=== PATIENT | male | born 1945 | race Caucasian/White ===

== ENCOUNTER 2023-05-12 07:35 | Outpatient (OUT) | payer MEDICARE, SELFPAY ==
[2023-05-12 08:20] LABS: Basophils Absolute Auto 0.1 10^3/uL (0.0-0.1); Basophils Percent Auto 0.7 % (0.2-2.0); Eosinophils Absolute Auto 0.2 10^3/uL (0.0-0.7); Eosinophils Percent Auto 2.2 % (0.9-7.0); Hematocrit 37.9 % (42.0-54.0); Hemoglobin 12.4 g/dL (14.0-18.0); Immature Granulocytes Abs Auto 0.02 10^3/uL (0.00-0.03); Immature Granulocytes Pct Auto 0.2 % (0.0-0.5); Lymphocytes Absolute Auto 1.9 10^3/uL (1.2-3.8); Lymphocytes Percent Auto 24.1 % (20.5-60.0); Mean Corpuscular HGB Conc 32.7 g/dL (29.9-35.2); Mean Corpuscular Hemoglobin 30.4 pg (25.9-34.0); Mean Corpuscular Volume 92.9 fL (80.0-94.0); Mean Platelet Volume 10.2 fL (9.5-13.5); Monocytes Absolute Auto 0.7 10^3/uL (0.3-0.8); Monocytes Percent Auto 9.2 % (1.7-12.0); Neutrophils Absolute Auto 5.1 10^3/uL (1.4-6.5); Neutrophils Percent Auto 63.6 % (43.0-75.0); Platelet Count 168 10^3/uL (150-450); Red Blood Count 4.08 10^6/uL (4.70-6.10); Red Cell Distribution Width 12.7 % (11.0-15.0)
[2023-05-12 08:22] LABS: Estimated Average Glucose 160 mg/dL; Glycohemoglobin A1C 7.2 % (4.5-6.2)
[2023-05-12 08:24] LABS: Microalbumin Urine Random <1.3 mg/dL (<=30.0)
[2023-05-12 09:26] LABS: Alanine Aminotransferase 16 U/L (16-63); Albumin Level 3.3 g/dL (3.4-5.0); Alkaline Phosphatase 91 U/L (46-116); Anion Gap 13.4; Aspartate Amino Transferase 11 U/L (15-37); BUN Creatinine Ratio 23.6; Bilirubin Total 0.3 mg/dL (0.2-1.0); Calcium 8.8 mg/dL (8.5-10.1); Carbon Dioxide 28.4 mmol/L (21.0-32.0); Chloride 98 mmol/L (98-107); Chol HDL Ratio 2.3; Cholesterol 115 mg/dL (<=200); Estimated GFR (African America >60 (>=60); Estimated GFR (Non-African Ame 55 (>=60); Globulin 3.4 g/dL; Glucose 68 mg/dL (74-106); HDL Cholesterol 49 mg/dL (40-60); LDL Cholesterol Calculated 42.6 mg/dL; Potassium 4.8 mmol/L (3.5-5.1); Sodium 135 mmol/L (136-145); Total Protein 6.7 g/dL (6.4-8.2); Triglycerides 117 mg/dL (<=150); VLDL CHOLESTEROL 23.4 mg/dL
== END 2023-05-12 07:36 | disposition home or self-care (01) ==
LOC: LAB 07:39
PROVIDERS: PCP Family Medicine; Visit Provider Family Medicine
DX: E11.65 Type 2 diabetes mellitus with hyperglycemia (principal); E78.5 Hyperlipidemia, unspecified
CPT/HCPCS: 36415; 80053; 80061; 82043; 83036; 85025

== ENCOUNTER 2024-01-07 09:31 | Emergency (ER) | payer MEDICARE, SELFPAY ==
[2024-01-07] VITALS (33 sets, daily range): BP systolic 121–161; BP diastolic 60–74; PULSE 45–65; RESP 6–27; TEMP 36.6; O2SAT 78–100; BMI 24.2
--- NOTE | 2024-01-07 10:02 | CT_ITS ---
The [address] [address] Patient Name: ISABELLE ARANDA MRN: [id number] date: 1945 Sex: M Assigned Patient Location: ER Current Patient Location: ER Accession/Order Number: [id number] Exam Date: 01/07/2024 10:14 Report Date: 01/07/2024 10:23 At the request of: HARIS ALVAREZ Procedure: CT head/brain wo con CT head/brain wo con: 01/07/2024 10:14 AM EST CLINICAL HISTORY: 78 years old Male with dizzy. TECHNIQUE: CT head/brain wo con was performed without intravenous contrast administration. Axial CT images are obtained as well as sagittal and coronal reformations. Dose reduction techniques were achieved by using automated exposure control and/or adjustment of mA and/or kV according to patient size and/or use of iterative reconstruction technique. COMPARISON: None FINDINGS: The ventricles, gyri, sulcal patterns, and basal cisterns have a normal size and configuration for the patient's age. No intracranial hemorrhage or extra-axial fluid collection is identified. There is no evidence of focal mass or midline shift. Ill-defined hypodense lesions of the periventricular white matter suggest microvascular ischemic disease. The basal ganglia and thalami appear normal. The midbrain and cerebellum appear normal. The paranasal sinuses are normally aerated. Mastoid air cells are normally aerated. No appreciable scalp soft tissue swelling or depressed skull fractures are seen. CT/CT head/brain wo con IMPRESSION: No intracranial hemorrhage, mass effect or midline shift. Electronically authenticated by: PREETHI MAO Date: 01/07/2024 10:23
--- NOTE | 2024-01-07 10:03 | ECG_ITS ---
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
--- NOTE | 2024-01-07 10:03 | XR_ITS ---
The [place] [id number] Patient Name: ISABELLE ARANDA MRN: [id number] date: 1945 Sex: M Assigned Patient Location: ER Current Patient Location: ER Accession/Order Number: [id number] Exam Date: 01/07/2024 10:14 Report Date: 01/07/2024 10:37 At the request of: HARIS ALVAREZ Procedure: XR chest 2V EXAM: XR chest 2V HISTORY: dizzy COMPARISON: Chest study dated 07/18/2019 TECHNIQUE: PA and lateral views of the chest were obtained. FINDINGS: Heart and mediastinal contours are unremarkable in appearance. No acute infiltrate or consolidations are seen. No obvious pneumothorax. Mild degenerative changes in the dorsal spine with slight convexity to the right. Old healed rib fractures are noted on the left. XR/XR chest 2V IMPRESSION: No acute process seen in the chest. Electronically authenticated by: ERNA RENAE Date: 01/07/2024 10:37
[2024-01-07 10:13] LABS: Basophils Percent Auto 0.5 % (0.2-2.0); Eosinophils Absolute Auto 0.1 10^3/uL (0.0-0.7); Eosinophils Percent Auto 1.5 % (0.9-7.0); Hemoglobin 12.1 g/dL (14.0-18.0); Immature Granulocytes Abs Auto 0.03 10^3/uL (0.00-0.03); Immature Granulocytes Pct Auto 0.4 % (0.0-0.5); Lymphocytes Absolute Auto 1.4 10^3/uL (1.2-3.8); Lymphocytes Percent Auto 17.6 % (20.5-60.0); Mean Corpuscular HGB Conc 31.8 g/dL (29.9-35.2); Mean Corpuscular Hemoglobin 30.5 pg (25.9-34.0); Mean Corpuscular Volume 95.7 fL (80.0-94.0); Monocytes Absolute Auto 0.7 10^3/uL (0.3-0.8); Monocytes Percent Auto 8.8 % (1.7-12.0); Neutrophils Absolute Auto 5.7 10^3/uL (1.4-6.5); Neutrophils Percent Auto 71.2 % (43.0-75.0); Platelet Count 172 10^3/uL (150-450); Red Blood Count 3.97 10^6/uL (4.70-6.10); White Blood Count 8.1 10^3/uL (4.0-11.0)
[2024-01-07] MEDS: 0.9 % SODIUM CHLORIDE 500 ML IV ×2 (10:28→11:47)
[2024-01-07 10:30] LABS: Alanine Aminotransferase 22 U/L (16-63); Albumin Level 3.2 g/dL (3.4-5.0); Alkaline Phosphatase 98 U/L (46-116); Anion Gap 13.2; Aspartate Amino Transferase 14 U/L (15-37); BUN Creatinine Ratio 22.8; Bilirubin Total 0.2 mg/dL (0.2-1.0); Calcium 8.3 mg/dL (8.5-10.1); Carbon Dioxide 27.8 mmol/L (21.0-32.0); Chloride 101 mmol/L (98-107); Estimated GFR (African America 57 (>=60); Estimated GFR (Non-African Ame 47 (>=60); Globulin 3.2 g/dL; Glucose 89 mg/dL (74-106); Sodium 137 mmol/L (136-145); Total Protein 6.4 g/dL (6.4-8.2)
[2024-01-07 10:31] LABS: Troponin I High Sensitivity 17.2 pg/mL (4.0-76.1)
[2024-01-07] MEDS: CARBAMIDE PEROXIDE 6.5% EAR DROPS 300 DROP/15 ML BOTTLE 10 DROP OT (10:50)
--- NOTE | 2024-01-07 10:51 | ED_ITS ---
HPI - General Adult General Chief complaint: Dizziness Stated complaint: LIGHT HEADED Time Seen by Provider: 01/07/24 09:59 Source: patient Mode of arrival: walk-in Limitations: no limitations History of Present Illness HPI narrative: Patient is a 78-year-old male who is translating to the ER with chief complaint of lightheaded, dizzy with no vertigo. Patient has some mild ataxia last night as well. Patient has no headache, patient states he has a history of cerumen impaction in the past. Patient states he does not have much hearing in his right ear at all, he does hear through his left ear. Patient typically using a hearing aid in his left ear, he does not have his hearing aid with him. Patient states with his hearing aid, he has a tendency to push wax in and that because impacted, he has had his years clean in the past, cerumen impaction has caused dizziness for him in the past. He has no vertigo. 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 Patient did not go to work last night secondary to lightheaded, dizziness, mild nausea. Patient's friend brought him to the ER. Patient has no vomiting, diarrhea, rash, or any other acute complaints. Patient is hard of hearing, that he hears when he speak louder to his left ear. All systems are negative except as noted/marked. All systems reviewed and otherwise negative. Nurses note and vital signs reviewed and patient is not hypoxic. General: The patient appears well and in no apparent distress. Patient is resting comfortably on cart. Patient is not toxic, lethargic, or listless. Hard of hearing, speaking loudly to left ear he can hear you and communication is normal and effective. Skin: Warm, dry, no pallor noted. There is no rash noted. No petechiae, purpura. Head: Normocephalic, atraumatic Eye: Normal conjunctiva, no drainage, EOMI. PERRL Ears, Nose, Mouth, and Throat: oral mucosa is moist. Patient's right TM has moderate cerumen impaction, I cannot visualize the right TM. Left TM is visualized, there is no wax. No erythema, perforation or bulging. Nares patent. Mouth without vesicles. Cardiovascular: Regular Rate and Rhythm, no murmur, gallop, rub Respiratory: Patient is in no distress, no accessory muscle use, lungs are clear to auscultation, no wheezing, rales or rhonchi Back: non-tender, no CVA tenderness bilaterally to percussion. No CT LS midline pain GI: no tenderness to palpation, no masses appreciated. No rebound, guarding, or rigidity noted. No distention Musculoskeletal: Patient has full range of motion of all of the extremities, no motor, sensory, or focal neurological deficits Neurological: A&O x4, normal speech Psychiatric: Cooperative Related Data Home Medications Medication Instructions Recorded Confirmed aspirin 81 mg capsule 81 mg PO DAILY 01/07/24 01/07/24 glyburide 5 mg tablet 5 mg PO DAILY 01/07/24 01/07/24 isosorbide mononitrate 30 mg 30 mg PO DAILY 01/07/24 01/07/24 tablet,extended release 24 hr metformin 1,000 mg tablet 1,000 mg PO BID 01/07/24 01/07/24 metoprolol tartrate 25 mg tablet 25 mg PO Q12H 01/07/24 01/07/24 nitroglycerin 0.4 mg sublingual 0.4 mg sublingual Q5M 01/07/24 01/07/24 tablet omega 2-uqw-qjg-fish oil 1,000 mg 1 cap PO DAILY 01/07/24 01/07/24 (120 mg-180 mg) capsule (Fish Oil) simvastatin 80 mg tablet 80 mg PO DAILY 01/07/24 01/07/24 Allergies Allergy/AdvReac Type Severity Reaction Status Date / Time Sulfa (Sulfonamide AdvReac Intermediate Verified 01/07/24 09:55 Antibiotics) [facility] Social History Smoking status: Current every day smoker Exam Constitutional Vital Signs, click to edit/add: Last Vital Signs Temp 97.8 F 01/07/24 09:37 Pulse 53 L 01/07/24 12:50 Resp 19 01/07/24 12:50 BP 133/60 01/07/24 12:45 Pulse Ox 99 01/07/24 12:50 O2 Del Method Room Air 01/07/24 09:37 Course Vital Signs Vital signs: Vital Signs Temperature 97.8 F 01/07/24 09:37 Pulse Rate 49 L 01/07/24 09:37 Respiratory Rate 18 01/07/24 09:37 Blood Pressure 145/73 H 01/07/24 09:37 Pulse Oximetry 100 01/07/24 09:37 Oxygen Delivery Method Room Air 01/07/24 09:37 Temperature 97.8 F 01/07/24 09:37 Pulse Rate 53 L 01/07/24 12:50 Respiratory Rate 19 01/07/24 12:50 Blood Pressure 133/60 01/07/24 12:45 Pulse Oximetry 99 01/07/24 12:50 Oxygen Delivery Method Room Air 01/07/24 09:37 Medical Decision Making MDM Narrative Medical decision making narrative: 1125 patient's creatinine is slightly elevated 1.45 compared to last creatinine of 1.2. Patient's BUN is consistent in the 30s. Chest x-ray, lab work, CT of the brain shows no acute findings. Patient is currently receiving 500 cc bolus of fluid, patient is going to get a second 500 cc bolus of fluid. Patient currently has Debrox drops in her ears. 1340 patient was irrigated several times to the right ear. Some wax was removed, the moderate-sized cerumen impaction has dislodged somewhat. It is deeper into the ear canal, I will not perform any type of curetting secondary to possible trauma that could be cause. Patient was shown how to irrigate his ears in the shower. Patient will do this 3-4 times a week. Patient was ambulated with [facility] and Vani ALONZO. Patient was a little unsteady, but felt better with ambulation, does not appear to be a fall risk, and did not require cane or walker. Patient will be discharged, patient was given a work note. Lab Data Labs: Lab Results 01/07/24 Range/Units 09:47 WBC 8.1 (4.0-11.0) 10^3/uL RBC 3.97 L (4.70-6.10) 10^6/uL Hgb 12.1 L (14.0-18.0) g/dL Hct 38.0 L (42.0-54.0) % MCV 95.7 H (80.0-94.0) fL MCH 30.5 (25.9-34.0) pg MCHC 31.8 (29.9-35.2) g/dL RDW 13.0 (11.0-15.0) % Plt Count 172 (150-450) 10^3/uL MPV 11.0 (9.5-13.5) fL Neut % (Auto) 71.2 (43.0-75.0) % Lymph % (Auto) 17.6 L (20.5-60.0) % [place] % (Auto) 8.8 (1.7-12.0) % Eos % (Auto) 1.5 (0.9-7.0) % Baso % (Auto) 0.5 (0.2-2.0) % Neut # (Auto) 5.7 (1.4-6.5) 10^3/uL Lymph # (Auto) 1.4 (1.2-3.8) 10^3/uL [place] # (Auto) 0.7 (0.3-0.8) 10^3/uL Eos # (Auto) 0.1 (0.0-0.7) 10^3/uL Baso # (Auto) 0.0 (0.0-0.1) 10^3/uL Abs Immat Gran (auto) 0.03 (0.00-0.03) 10^3/uL Imm/Tot Granulo (auto) 0.4 (0.0-0.5) % Sodium 137 (136-145) mmol/L Potassium 5.0 (3.5-5.1) mmol/L Chloride 101 (98-107) mmol/L Carbon Dioxide 27.8 (21.0-32.0) mmol/L Anion Gap 13.2 BUN 33.0 H (7.0-18.0) mg/dL Creatinine 1.45 H (0.70-1.30) mg/dL Est GFR ( Amer) 57 L (>=60) Est GFR (Non-Af Amer) 47 L (>=60) BUN/Creatinine Ratio 22.8 Glucose 89 (74-106) mg/dL Calcium 8.3 L (8.5-10.1) mg/dL Total Bilirubin 0.2 (0.2-1.0) mg/dL AST 14 L (15-37) U/L ALT 22 (16-63) U/L Alkaline Phosphatase 98 (46-116) U/L Troponin I High Sens 17.2 (4.0-76.1) pg/mL Total Protein 6.4 (6.4-8.2) g/dL Albumin 3.2 L (3.4-5.0) g/dL Globulin 3.2 g/dL Albumin/Globulin Ratio 1.0 ECG Data Attestation: I personally reviewed and interpreted this ECG as follows: (EKG interpretation. Normal sinus rhythm at 50 beats a minute. Left axis deviation. Artifact noted. EKG shows signs of left bundle branch block, QTc of 445. Compared to old EKG on June 23, 2010, patient has similar changes to today's EKG.) Discharge Plan Discharge Chief Complaint: Dizziness Clinical Impression: Dizziness, Lightheadedness, Impacted cerumen of right ear Patient Disposition: Home, Self-Care Time of Disposition Decision: 13:42 Condition: Fair Prescriptions / Home Meds: No Action metformin 1,000 mg tablet 1,000 mg PO BID glyburide 5 mg tablet 5 mg PO DAILY isosorbide mononitrate 30 mg tablet extended release 24 hr 30 mg PO DAILY metoprolol tartrate 25 mg tablet 25 mg PO Q12H simvastatin 80 mg tablet 80 mg PO DAILY Patient Comments: takes 1/2 tab 40mg aspirin 81 mg capsule 81 mg PO DAILY nitroglycerin 0.4 mg tablet, sublingual 0.4 mg sublingual Q5M Rx Instructions: do not exceed 3 doses per episode omega 6-pjf-ers-fish oil [Fish Oil] 1,000 mg (120 mg-180 mg) capsule 1 cap PO DAILY Instructions: Carbamide Peroxide (Into the ear), Lightheadedness (ED), Dizziness (ED) Additional Instructions: Increase fluids at home. Irrigate your ears in the shower 3-4 times a week as shown at bedside to help with cerumen impaction. Follow-up with PCP as needed. Work note given. Stand Alone Forms: Portal Instructions Referrals: Svetlana Riggs MD [Primary Care Provider] - 1 week
== END 2024-01-07 14:03 | disposition home or self-care (01) ==
PROVIDERS: Emergency Provider Emergency Medicine; PCP Family Medicine
DX: R42 Dizziness and giddiness (principal); H61.21 Impacted cerumen, right ear; H91.90 Unspecified hearing loss, unspecified ear; Z79.82 Long term (current) use of aspirin; Z79.84 Long term (current) use of oral hypoglycemic drugs; F17.200 Nicotine dependence, unspecified, uncomplicated
CPT/HCPCS: 36415; 70450; 71046; 80053; 84484; 85025; 93005; 99285

== ENCOUNTER 2025-03-05 07:12 | Outpatient (OUT) | payer MEDICARE, SELFPAY ==
--- OUTSIDE RECORDS SUMMARY | 2025-03-05 07:16 | XMS_ITS | CCD ---
Author Organization [facility] Care Team Providers Care Smoking Pipe Liner Name Role Phone DR SVETLANA RIGGS Consulting Unavailable DR SVETLANA RIGGS Attending Unavailable DR SVETLANA RIGGS Admitting Unavailable DR SVETLANA RIGGS Primary Care Unavailable Svetlana Riggs Allergies Allergy Classification Reported Allergen(s) Allergy Type Date of Onset Reaction(s) Facility (3 sources) sulfADIAZINE Drug Allergy 02-14-20 Comment:Sulfa [facility] (2 sources) Sulfonamides (Antibiotic) Propensity to adverse reactions Unknown [facility] Other (1 source) Sulfacetamide Drug Allergy 02-14-20 Unknown Reaction [facility] (1 source) Sulfonamides (Antibiotic) Allergy to substance 02-14-20 Hives [facility] Medications Current Medications Medication Drug Class(es) Dates Sig (Normalized) Sig (Original) aspirin 81 mg delayed release oral tablet (6 sources) Platelet Aggregation Inhibitor, Nonsteroidal Anti-inflammatory Drug Start: 07-08-2018 Aspirin Active 81 MG PO As Directed July 08, 2018 12:00am azithromycin 250 mg oral tablet (2 sources) Macrolide Antimicrobial Start: 09-21-2023 Azithromycin 250 MG as directed Orally 2 tabs po today, then 1 tab daily x 4 more days for 5 Sep, Active dicyclomine hydrochloride 20 mg oral tablet (5 sources) Anticholinergic Start: 01-18-2020 take 1 tablet by mouth every twelve hours Dicyclomine HCl 20 MG 1 tablet Orally bid for 90 days Jan, Active Fish Oils (5 sources) take 1 capsule by mouth once adama ly Fish Oil 1200 MG 1 capsule Orally Once a day Active glyBURIDE 5 mg oral tablet (6 sources) Sulfonylurea Start: 12-11-2019 Glyburide Acti ve 5 MG PO As Directed December 11, 2019 1:00am 24 hr isosorbide mononitrate 30 mg extended release oral tablet (6 sources) Nitrate Vasodilator Start: 07-08-2018 Isosorbide Mononitrate Active 30 MG PO As Directed July 08, 2018 12:00am lisinopril 2.5 mg oral tablet (2 sources) Angiotensin Converting Enzyme Inhibitor Lisinopril 2.5 MG TAKE 1 TABLET EVERY DAY for 90 Active metFORMIN (7 sources) Biguanide Start: 01-03-2024 Metformin Acti ve 0 .ROUTE .COMPLEX 180 January 03, 2024 1:21pm TAKE 1 TABLET TWICE DAILY Start: 07-08-2018 End: 01-03-2024 Metformin Discontinued 1000 MG PO As Directed July 08, 2018 12:00am January 03, 2024 1:21pm metFORMIN HCl 10 00 MG TAKE 1 TABLET TWICE DAILY for 90 Active Metoprolol (7 sources) beta-Adrenergic Roya Start: 01-10-2024 Metopr olol Tartrate Active 0 .ROUTE .COMPLEX 180 January 10, 2024 4:14pm TAKE 1 TABLET TWICE DAILY Start: 07-08-2018 End: 01-10-2024 Metoprolol Tartrate Disconti nued 25 MG PO As Directed July 08, 2018 12:00am January 10, 2024 4:15pm nitroglycerin 0.4 mg sublingual tablet (6 sources) Nitrate Vasodilator Start: 07-08-2018 Nitroglyce rin Active 0.4 MG SUBLINGUAL As Directed July 08, 2018 12:00am Nitroglycerin 0. 4 MG as directed Sublingual prn Active Patterson 1-Mfh-Zil-Fish Oil (Fish Oil) 1,000 mg (120 mg-180 mg) Capsule (1 source) Start: 07-08-2018 Patterson 5-Zeb-Bvj-Fish Oil (Fish Oil) 1,000 mg (120 mg-180 mg) Capsule Active 1000 MG PO As Directed July 08, 2018 12:00am predniSONE 20 mg oral tablet (2 sources) take 1 tablet by mouth every twenty-four hours predniSONE 20 MG 1 tablet Orally Once a day for 5 days Active simvastatin 40 mg oral tablet (7 sources) HMG-CoA Reductase Inhibitor Start: 12-11-2019 take 40 mg by mouth once daily in the evening Simvastatin Active 40 MG PO Every evening December 11, 2019 1:00am Start: 07-08-2018 End: 12-11-2019 Simvastatin Discontinued TAB LET July 08, 2018 12:00am December 11, 2019 9:09am Completed/Discontinued Medications Medication Drug Class(es) Dates Sig (Normalized) Sig (Original) glimepiride 2 mg oral tablet (5 sources) Sulfonylurea Start: 07-08-2018 End: 12-11-2019 Glimepiride Discontinued TABLET July 08, 2018 12:00am December 11, 2019 9:08am metroNIDAZOLE 500 mg oral tablet (5 sources) Nitroimidazole Antimicrobial Start: 12-01-2019 take 1 tablet by mouth every twelve hours metroNIDAZOLE 500 MG 1 tablet Orally bid for 7 day(s) Nov, Not-Taking/PRN Problems Active Problems Problem Classification Problem Date Documented Da te Episodic/Chronic Chronic obstructive pulmonary disease and bronchiectasis (10 sources) Chronic obstructive lung disease; Translations: [Chronic obstructive pulmonary disease, unspecified] Chronic Diabetes mellitus with complications (5 sources) Type 2 diabetes mellitus; Translations: [Type 2 diabetes mellitus with hyperglycemia] Chronic Diabetes mellitus without complication (5 sources) Type 2 diabetes mellitus without complication; Translations: [Type 2 diabetes mellitus without complications] Chronic Disorders of lipid metabolism (5 sources) Dyslipidemia; Translations: [Hyperlipidemia, unspecified] Chronic Other ear and sense organ disorders (1 source) Impacted cerumen, bilateral Episodic Other ear and sense organ disorders (1 source) Impacted cerumen; Translations: [Impacted cerumen, right ear] 01-14-2024 Episodic Other ear and sense organ disorders (1 source) Impacted cerumen, right ear; Translations: [Impacted cerumen] 01-10-2024 Episodic Other gastrointestinal disorders (1 source) Other specified symptoms and signs involving the digestive system and abdomen Episodic Other gastrointestinal disorders (1 source) Diarrhea; Translations: [Diarrhea, unspecified] 12-11-2019 Episodic Residual codes; unclassified (1 source) Memory impairment; Translations: [Other amnesia] 02-14-2024 Episodic Residual codes; unclassified (1 source) Other amnesia; Translations: [Memory loss] 02-14-2024 Episodic Unclassified (2 sources) CONTACT W/AND (SUSP) EXPOS COVID-19; Translations: [CONTACT W/AND (SUSP) EXPOS COVID-19] Onset: 07-26-2022 Viral infection (1 source) COVID-19; Translations: [COVID-19] Onset: 07-26-2022 Past or Other Problems Problem Classification Problem Date Documented Da te Episodic/Chronic Unclassified (1 source) CONTACT W/AND (SUSP) EXPOS COVID-19; Translations: [CONTACT W/AND (SUSP) EXPOS COVID-19] Onset: 07-22-2022 Results Test Name Value Interpretation Reference Range Facility Basophils Auto (Bld) [#/Vol] on 01-07-2024 Basophils (Bld) [#/Vol] 0.0 10 3/uL 0.0-0.1 [facility] Basophils/100 WBC Auto (Bld) on 01-07-2024 Basophils/100 WBC (Bld) 0.5 % 0.2-2.0 [facility] Eosinophils/100 WBC Auto (Bl d)on 01-07-2024 Eosinophils/100 WBC (Bld) 1.5 % 0.9-7.0 [facility] Erythrocyte distribution wid th Auto (RBC) [Ratio]on 01-07-2024 Erythrocyte distribution width (RBC) [Ratio] 13.0 % 11.0-15.0 [facility] Estimated glomerular filtrat ion rate (GFR) non- Americanon 01-07-2024 GFR/1.73 sq M.predicted among non-blacks MDRD (S/P/Bld) [Vol rate/Area] 47 mL/min/{1.73_m2} >=60 [facility] Globulin Calc (S) [Mass/Vol] on 01-07-2024 Globulin (S) [Mass/Vol] 3.2 g/dL [facility] Hematocrit Auto (Bld) [Volum e fraction]on 01-07-2024 Hematocrit (Bld) [Volume fraction] 38.0 % 42.0-54.0 [facility] Hemoglobin [Mass/volume] in Bloodon 01-07-2024 Hemoglobin (Bld) [Mass/Vol] 12.1 g/dL 14.0-18.0 [facility] Laboratory - Chemistry and C hemistry - challengeon 01-07-2024 Albumin [Mass/Vol] 3.2 g/dL 3.4-5.0 [facility] ALP [Catalytic activity/Vol] 98 U/L 46-116 [facility] ALT [Catalytic activity/Vol] 22 U/L 16-63 [facility] AST [Catalytic activity/Vol] 14 U/L 15-37 [facility] Bilirubin [Mass/Vol] 0.2 mg/dL 0.2-1.[address] [facility] Calcium [Mass/Vol] 8.3 mg/dL 8.5-10.1 [facility] Chloride [Moles/Vol] 101 mmol/L 98-[address] [facility] CO2 [Moles/Vol] 27.8 mmol/L 21.0-32.0 [facility] Creatinine [Mass/Vol] 1.45 mg/dL 0.70-1.30 [facility] GFR/1.73 sq M.predicted MDRD (S/P/Bld) [Vol rate/Area] 57 mL/min/{1.73_m2} >=60 [facility] Glucose [Mass/Vol] 89 mg/dL 74-106 [facility] Potassium [Moles/Vol] 5.0 mmol/L 3.5-5.1 [facility] Protein [Mass/Vol] 6.4 g/dL 6.4-8.2 [facility] Sodium [Moles/Vol] 137 mmol/L 136-145 [facility] Urea nitrogen [Mass/Vol] 33.0 mg/dL 7.0-18.0 [facility] Urea nitrogen/Creatinine [Mass ratio] 22.8 mg/mg [facility] Laboratory - Hematology and Cell countson 01-07-2024 Immature granulocytes/100 WBC (Bld) 0.4 % 0.0-0.5 [facility] Leukocytes [#/volume] correc melissa for nucleated erythrocytes in Blood by Automated counon 01-07-2024 WBC corrected for nucl RBC Auto (Bld) [#/Vol] 8.1 10 3/uL 4.0-11.0 [facility] Lymphocytes Auto (Bld) [#/Vo l]on 01-07-2024 Lymphocytes (Bld) [#/Vol] 1.4 10 3/uL 1.2-3.8 [facility] Lymphocytes/100 WBC Auto (Bl d)on 01-07-2024 Lymphocytes/100 WBC (Bld) 17.6 % 20.5-60.0 [facility] MCH Auto (RBC) [Entitic mass ]on 01-07-2024 MCH (RBC) [Entitic mass] 30.5 pg 25.9-34.0 [facility] MCHC Auto (RBC) [Mass/Vol]on 01-07-2024 MCHC (RBC) [Mass/Vol] 31.8 g/dL 29.9-35.2 [facility] MCV Auto (RBC) [Entitic vol] on 01-07-2024 MCV (RBC) [Entitic vol] 95.7 fL 80.0-94.0 [facility] Monocytes Auto (Bld) [#/Vol] on 01-07-2024 Monocytes (Bld) [#/Vol] 0.7 10 3/uL 0.3-0.8 [facility] Monocytes/100 WBC Auto (Bld) on 01-07-2024 Monocytes/100 WBC (Bld) 8.8 % 1.7-12.0 [facility] Neutrophils Auto (Bld) [#/Vo l]on 01-07-2024 Neutrophils (Bld) [#/Vol] 5.7 10 3/uL 1.4-6.5 [facility] Neutrophils/100 WBC Auto (Bl d)on 01-07-2024 Neutrophils/100 WBC (Bld) 71.2 % 43.0-75.0 [facility] No Panel Informationon 01-07 Eosinophils # (Auto) 0.1 10 3/uL 0.0-0.7 [facility] Immature Granulocyte # (Auto) 0.03 10 3/uL 0.00-0.03 [facility] Troponin I High Sensitivity 17.2 pg/mL 4.0-76.1 [facility] Comment on above: CUT-OFF POINTS HAVE BEEN ESTABLISHED BASED ON THE FOURTHUNIVERSAL DEFINITION OF MYOCARDIAL INFARCTION. THE UPPERREFERENCE LIMIT (URL) OF TROPONIN, DEFINED THE 99THPERCENTILE OF cTnI DISTRIBUTION IN A REFERENCE POPULATION,HAS BEEN CONFIRMED THE DECISION THRESHOLD FOR MIDIAGNOSIS.99TH PERCENTILE = 76.2 PG/MLNOTE: HIGH-SENSITIVITY TROPONIN ASSAY IS NOT INTENDED TO BEUSED IN ISOLATION BUT SHOULD BE INTERPRETED IN CONJUNCTIONWITH OTHER DIAGNOSTIC AND CLINICAL INFORMATION. Platelet mean volume Auto (B ld) [Entitic vol]on 01-07-2024 Platelet mean volume (Bld) [Entitic vol] 11.0 fL 9.5-13.5 [facility] Platelets Auto (Bld) [#/Vol] on 01-07-2024 Platelets (Bld) [#/Vol] 172 10 3/uL 150-450 [facility] RBC Auto (Bld) [#/Vol]on RBC (Bld) [#/Vol] 3.97 10 6/uL 4.70-6.10 [facility] Serum or plasma albumin/glob ulin mass ratioon 01-07-2024 Albumin/Globulin [Mass ratio] 1.0 {ratio} [facility] Serum or plasma anion gap de terminationon 01-07-2024 Anion gap [Moles/Vol] 13.2 mmol/L [facility] Covid-19 PCR ([facility])on SARS-CoV-2 (COVID-19) RNA JOSE+probe Ql (Unsp spec) Detected Critically abnormal NOT DETECTED [facility] Comment on above: Result Comment: This test is not yet approved or cleared by the [place] FDA. When there are no FDA-approved or cleared tests available, and other criteria are met, FDA can make tests available under an emergency access mechanism called an Emergency Use Authorization (EUA). The EUA for this test is supported by the Metal Technician of Health and Human Service's (HHS's) declaration that circumstances exist to justify the emergency use of in vitro diagnostics for the detection and/or diagnosis of the virus that causes COVID-19. This EUA will remain in effect (meaning this test can be used) for the duration of the COVID-19 declaration justifying emergency of IVDs, unless it is terminated or revoked by FDA (after which the test may no longer be used). Performed By: #### C VDTB #### [facility] [address] [address] [address] Lobo Howell Vital Signs Date Time Vital Sign Value Performing Clinician Facility 02-14-2024 14:14-0400 Body height 175.26 cm [facility] 02-14-2024 14:14-0400 Body mass index (BMI) [Ratio] 21.4 kg/m2 [facility] 02-14-2024 14:14-0400 Body weight 65.99 kg [facility] 02-14-2024 14:14-0400 Diastolic blood pressure 68 mm[Hg] [facility] 02-14-2024 14:14-0400 Heart rate 56 /min [facility] 02-14-2024 14:14-0400 Systolic blood pressure 127 mm[Hg] [facility] 01-10-2024 15:18-0500 Body height 175.26 cm [facility] 01-10-2024 15:18-0500 Body mass index (BMI) [Ratio] 21.7 kg/m2 [facility] 01-10-2024 15:18-0500 Body weight 66.67 kg [facility] 01-10-2024 15:18-0500 Diastolic blood pressure 61 mm[Hg] [facility] 01-10-2024 15:18-0500 Heart rate 59 /min [facility] 01-10-2024 15:18-0500 Systolic blood pressure 109 mm[Hg] [facility] 09-21-2023 09:30-0500 Body height 175.26 cm Svetlana Riggs Other [employer] [facility] Other 09-21-2023 09:30-0500 Body mass index (BMI) [Ratio] 21.59 kg/m2 Svetlana Riggs Other [facility] Other 09-21-2023 09:30-0500 Body temperature 98 [degF] Svetlana Riggs Other [facility] Other 09-21-2023 09:30-0500 Body weight 66.32 kg Svetlana Riggs Other [facility] Other 09-21-2023 09:30-0500 Diastolic blood pressure 72 mm[Hg] Svetlana Riggs Other [facility] Other 09-21-2023 09:30-0500 Systolic blood pressure 131 mm[Hg] Svetlana Riggs Other [facility] Other 05-10-2023 11:30-0400 Body height 175.26 cm Svetlana Riggs Other [facility] Other 05-10-2023 11:30-0400 Body mass index (BMI) [Ratio] 22.15 kg/m2 Svetlana Riggs Other [facility] Other 05-10-2023 11:30-0400 Body weight 68.04 kg Svetlana Riggs Other [facility] Other 05-10-2023 11:30-0400 Diastolic blood pressure 74 mm[Hg] Svetlana Riggs Other [facility] Other 05-10-2023 11:30-0400 Systolic blood pressure 134 mm[Hg] Svetlana Riggs Other [facility] Other 12-01-2022 15:15-0500 Body height 175.26 cm Svetlana Riggs Other [facility] Other 12-01-2022 15:15-0500 Body mass index (BMI) [Ratio] 22 kg/m2 Svetlana Riggs Other [facility] Other 12-01-2022 15:15-0500 Body weight 67.59 kg Svetlana Riggs Other [facility] Other 12-01-2022 15:15-0500 Diastolic blood pressure 68 mm[Hg] Svetlana Riggs Other [facility] Other 12-01-2022 15:15-0500 SaO2% (BldA) [Mass fraction] 93 % Svetlana Riggs Other [facility] Other 12-01-2022 15:15-0500 Systolic blood pressure 128 mm[Hg] Svetlana Riggs Other [facility] Other Encounters Encounter Date Encounter Type Care Provider Facility Start: 02-14-2024 End: 02-14-2024 ambulatory [facility] Work Phone: Start: 02-14-2024 End: 02-14-2024 Patient encounter procedure [facility] Work Phone: Start: 01-10-2024 End: 01-10-2024 Patient encounter procedure [facility] Work Phone: Start: 01-10-2024 Non-patient / Non-visit [facility] Work Phone: Start: 01-07-2024 Non-patient / Non-visit [facility] Work Phone: Start: 12-16-2023 End: 12-16-2023 ambulatory Svetlana Riggs Other [facility] Other Start: 12-16-2023 Telephone encounter Svetlana Riggs [facility] Start: 09-21-2023 End: 09-21-2023 ambulatory Svetlana Riggs Other [facility] Other Start: 09-21-2023 Office outpatient vi sit 15 minutes Svetlana Riggs [facility] Start: 05-28-2023 End: 05-28-2023 ambulatory Svetlana Riggs Other [facility] Other Start: 05-28-2023 Telephone encounter Svetlana Riggs [employer] Start: 05-10-2023 End: 05-10-2023 ambulatory Svetlana Riggs Other [facility] Other Start: 05-10-2023 Patient encounter procedure Svetlana Riggs [facility] Start: 12-01-2022 (Acute) Acute Visit Svetlana Riggs [facility] Start: 12-01-2022 End: 12-01-2022 ambulatory Svetlana Riggs Other [facility] Other Start: 07-22-2022 End: 07-22-[address] SVETLANA RIGGS Facility: Plan of Treatment Date Care Activity Detail Author Start: 02-14-2024 Patient referral [facility] Work Phone: Patient referral [facility] Work Phone: Immunizations Immunization Date Immunization Notes Care Provider [facility] 08-22-2020 influenza virus vaccine, split virus (incl. purified surface antigen) Svetlana Riggs Other [employer] [facility] Other 08-22-2020 influenza virus vaccine, unspecified formulation [facility] 09-09-2016 influenza virus vaccine, split virus (incl. purified surface antigen) Svetlana Riggs Other [employer] [facility] Other 09-09-2016 influenza virus vaccine, unspecified formulation [facility] Payers Date Payer Category Payer Medicare [id number] 1945 Unknown [id number] Self-pay Self Pay [id number] Unknown [facility] Administration [id number] Social History Date Type Detail Facility Unknown if ever smoked [facility] Other Sex Assigned At Sex Assigned At Bir th [facility] Other Start: 12-11-2019 Tobacco smoking status NHIS Ex-smoker (finding) [facility] Start: 1945 Sex Assigned At Male F [facility] Hospital Discharge instructions 02-14-2024 Note Date & Type Note Facility 02-14-2024 Hospital Discharg e instructions Ambulatory OrdersReferral to Neurology Time Frame: 02/14/24, Location: None [facility] Work Phone: Evaluation note 09-21-2023 Note Date & Type Note Facility 09-21-2023 Evaluation note Encounter Date Diagnosis Assessment Notes Sep, COPD with exacerbation (ICD-10 - J44.1) Discussed diagnosis with patient. Will treat with ATB. Medication profile and possible SE reviewed with patient. Take as directed. Continue Albuterol inhaler PRN sob, wheezing, cough. Notify office if not improving or worsening. Patient verbalizes understanding and agrees to treatment plan. [facility] Other Evaluation note 12-01-2022 Note Date & Type Note Facility 12-01-2022 Evaluation note Encounter Date Diagnosis Assessment Notes Nov, Bilateral impacted cerumen (ICD-10 - H61.23) [facility] Other Evaluation note Note Date & Type Note Facility Evaluation note [facility] Other Evaluation note Note Date & Type Note Facility Evaluation note No Information [facility] Other Evaluation note Note Date & Type Note Facility Evaluation note Diagnosis Onset Date COPD (chronic obstructive pulmonary disease) acute Right ear impacted cerumen a cute Memory deficit acute [facility] Work Phone: History general Narrative - Reported Note Date & Type Note Facility History general Narrative - Reported Type Medical History HTN Medical History hyperlipidemia Medical History DM II Medical History COPD [facility] Other History general Narrative - Reported Note Date & Type Note Facility History general Narrative - Reported [facility] Other History general Narrative - Reported Note Date & Type Note Facility History general Narrative - Reported Type Medical History HTN Medical History hyperlipidemia Medical History DM II Medical History COPD Surgical History COLONOSCOPY 2019 Hospitalization History SEE SURGICAL HX [facility] Other Summary Purpose Family History Relationship Condition Age at Onset Recorded Date/T vivi Not Specified No pertinent family history Unknown father Unknown Not Specified Unknown Advance Directives Advance Directive Response Recorded Date/ Time Advance Directives Yes August 30, 2018 8:24am Chief Complaint and Reason for Visit Chief Complaint Amb Documentation [facility] ER Follow Up discuss possible dementia Reason for Visit COPD (chronic obstru ctive pulmonary disease) Right ear impacted cerumen Memory deficit Additional Source Comments (unrecognized sect ion and content) No Status Records Found INFORMATION SOURCE (unrecogn ized section and content) DATE CREATED AUTHOR 07/26/2022 [facility] REASON FOR VISIT (unrecogniz ed section and content) ear plugged3 ATTEMPTScough, sinuses for over a weekrefill Care Teams (unrecognized sec tion and content) Team Status: Active Member Role Status Dates Svetlana Riggs MD Primary Care Provider Active Team Status: Active Member Role Status Dates Svetlana Riggs MD Primary Care Provide r, Attending Provider Active Start: January 07, 2024 Team Status: Active Member Role Status Dates Svetlana Riggs MD Primary Care Provider Active Start: January 10, 2024 MARINA Sylvester Attending Provider Active Start : January 10, 2024 Team Status: Inactive Member Role Status Dates Svetlana Riggs MD Primary Care Provide r, Attending Provider Active Start: January 10, 2024 End: January 10, 2024 Team Status: Inactive Member Role Status Dates Svetlana Riggs MD Primary Care Provide r, Attending Provider Active Start: February 14, 2024 End: February 14, 2024 Goals (unrecognized section and content) Goals may be documented in a n alternate section FOR RECORDS PERTAINING TO PATIENTS WHO ARE OR HAVE BEEN ENROLLED IN A CHEMICAL DEPENDENCY/SUBSTANCEABUSE PROGRAM, SOME INFORMATION MAY BE OMITTED. This clinical summary was aggregated from multiple sources. Caution should be exercised in using it in the provision of clinical care. This summary normalizes information from multiple sources, and as a consequence, information in this document may materially change the coding, format and clinical context of patient data. In addition, data may be omitted in some cases. CLINICAL DECISIONS SHOULD BE BASED ON THE PRIMARY CLINICAL RECORDS. [employer] [facility]. provides no warranty or guarantee of the accuracy or completeness of information in this document.
[2025-03-05 07:45] LABS: Bilirubin Urine NEGATIVE (NEGATIVE); Blood Urine NEGATIVE (NEGATIVE); Clarity Urine CLEAR (CLEAR); Color Urine LT. YELLOW (YELLOW); Glucose Urine UA NEGATIVE (NEGATIVE); Ketones Urine NEGATIVE (NEGATIVE); Leukocyte Esterase Urine NEGATIVE (NEGATIVE); Nitrite Urine NEGATIVE (NEGATIVE); Protein Urine NEGATIVE (NEG/TRACE); Urobilinogen Urine 0.2 EU/dL (0.2-1.0)
[2025-03-05 07:48] LABS: Basophils Absolute Auto 0.1 10^3/uL (0.0-0.1); Basophils Percent Auto 0.7 % (0.2-2.0); Eosinophils Absolute Auto 0.2 10^3/uL (0.0-0.7); Eosinophils Percent Auto 2.3 % (0.9-7.0); Hematocrit 37.6 % (42.0-54.0); Hemoglobin 11.9 g/dL (14.0-18.0); Immature Granulocytes Abs Auto 0.02 10^3/uL (0.00-0.03); Immature Granulocytes Pct Auto 0.3 % (0.0-0.5); Lymphocytes Absolute Auto 1.4 10^3/uL (1.2-3.8); Lymphocytes Percent Auto 18.7 % (20.5-60.0); Mean Corpuscular HGB Conc 31.6 g/dL (29.9-35.2); Mean Corpuscular Hemoglobin 30.1 pg (25.9-34.0); Mean Corpuscular Volume 95.2 fL (80.0-94.0); Mean Platelet Volume 10.6 fL (9.5-13.5); Monocytes Absolute Auto 0.6 10^3/uL (0.3-0.8); Monocytes Percent Auto 8.8 % (1.7-12.0); Neutrophils Absolute Auto 5.1 10^3/uL (1.4-6.5); Neutrophils Percent Auto 69.2 % (43.0-75.0); Platelet Count 144 10^3/uL (150-450); Red Blood Count 3.95 10^6/uL (4.70-6.10); Red Cell Distribution Width 12.8 % (11.0-15.0); White Blood Count 7.3 10^3/uL (4.0-11.0)
[2025-03-05 08:00] LABS: Estimated Average Glucose 143 mg/dL; Glycohemoglobin A1C 6.6 % (4.5-6.2)
[2025-03-05 08:01] LABS: Creatinine Urine Random 108.92 mg/dL (20.00-300.00); Microalbumin Urine Random 2.4 mg/dL (<=30.0)
[2025-03-05 08:02] LABS: Alanine Aminotransferase 13 U/L (16-63); Albumin Globulin Ratio 1.1; Albumin Level 3.3 g/dL (3.4-5.0); Alkaline Phosphatase 96 U/L (46-116); Anion Gap 12.3; Aspartate Amino Transferase 12 U/L (15-37); BUN Creatinine Ratio 19.1; Bilirubin Total 0.2 mg/dL (0.2-1.0); Calcium 8.5 mg/dL (8.5-10.1); Carbon Dioxide 27.7 mmol/L (21.0-32.0); Chloride 105 mmol/L (98-107); Chol HDL Ratio 1.9; Cholesterol 99 mg/dL (<=200); Estimated GFR (African America 45 (>=60 mL/min/1.73m^2); Estimated GFR (Non-African Ame 37 (>=60 mL/min/1.73m^2); Globulin 2.9 g/dL; Glucose 56 mg/dL (74-106); HDL Cholesterol 52 mg/dL (40-60); LDL Cholesterol Calculated 32.2 mg/dL; Sodium 140 mmol/L (136-145); Total Protein 6.2 g/dL (6.4-8.2); Triglycerides 74 mg/dL (<=150); VLDL CHOLESTEROL 14.8 mg/dL
== END 2025-03-05 07:13 | disposition home or self-care (01) ==
PROVIDERS: PCP Family Medicine; Visit Provider Family Medicine
DX: E11.9 Type 2 diabetes mellitus without complications (principal); E78.5 Hyperlipidemia, unspecified; I10 Essential (primary) hypertension; R82.998 Other abnormal findings in urine
CPT/HCPCS: 36415; 80053; 80061; 81003; 82043; 82570; 83036; 85025; 87086

== ENCOUNTER 2025-08-16 08:30 | Outpatient (OUT) | payer MEDICARE, SELFPAY ==
--- OUTSIDE RECORDS SUMMARY | 2025-08-16 08:35 | XMS_ITS | Clinical Summary ---
Author Organization garbs tem Address [id number] [address] 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 Active aspirin 81 mg Take 1 tablet (81 mg total) by mouth in the morning. Active isosorbide mononitrate (IMDUR) 30 mg 24 hr tablet Take 1 tablet (30 mg total) by mouth daily. Active metFORMIN (GLUCOPHAGE) 1000 mg tablet Take 1 tablet (1,000 mg total) by mouth in the morning and 1 tablet (1,000 mg total) before bedtime. Active metoprolol tartrate (LOPRESSOR) 25 mg tablet Take 1 tablet (25 mg total) by mouth in the morning and 1 tablet (25 mg total) before bedtime. Active nitroglycerin (NITROSTAT) 0.[address] 1 tablet (0.4 mg total) under the tongue as needed. Active simvastatin (ZOCOR) 40 mg tablet Take 1 tablet (40 mg total) by mouth in the morning. Active glyBURIDE (DIABETA) 5 mg tablet Take 1 tablet (5 mg total) by mouth in the evening. Active lisinopriL (PRINIVIL,ZESTRI L) 2.5 mg tablet Take 1 tablet (2.5 mg total) by mouth in the morning. Active ferrous sulfate 325 (65 FE) MG tablet Take 1 tablet (325 mg total) by mouth daily with breakfast. Active meclizine (ANTIVERT) 25 mg tablet Take 1 tablet (25 mg total) by mouth 3 (three) times a day as needed for dizziness. 30 tablet 04/26/2025 Active magnesium oxide (MAGOX) 400 mg tablet Take 1 tablet (400 mg total) by mouth in the morning. 30 tablet 04/27/2025 Active cyanocobalamin (vitamin B-12) 1000 MCG tablet Take 1 tablet (1,000 mcg total) by mouth in the morning. 04/26/2025 Active Active Problems Problem Noted Date Diagnosed Date Vitamin B12 deficiency 04/26/2025 Dizziness 04/25/2025 Hypomagnesemia 04/25/2025 ROSA (acute kidney injury) 04/25/2025 Stroke-like symptom 04/25/2025 Grade I diastolic dysfunction 04/25/2025 Type 2 diabetes mellitus, wi [facility] long-term current use of insulin 04/25/2025 Vestibular neuronitis of left ear 04/25/2025 Benign paroxysmal positional vertigo of left ear 04/25/2025 Pure hypercholesterolemia 08/05/2017 Atherosclerosis of [place] co ronary artery without angina pectoris 08/05/2017 Chronic coronary artery disease 12/11/2014 Benign essential hypertension 12/07/2014 Family History Medical History Relation Name Comments Stroke Daughter 1 Keshia No Known Problems Daughter 2 zofia Cancer Father Diabetes Father Heart disease Father Hypertension Father Stroke Father ALS Mother Cancer Mother Cancer Sister 1 tyson No Known Problems Son dwayne Relation Name Status Comments Daughter 1 Keshia Alive Daughter 2 zofia Alive Father Mother Sister 1 tyson Alive Sister 2 adriana Son dwayne Alive Social History Tobacco Use Types Packs/Day Years Used Date Smoking Tobacco: Former Cigarettes Smokeless Tobacco: Never Tobacco Cessation:Counseling Given: Not Answered Comments:quit 09-22-19, smoked 2ppd, x57 years Alcohol Use Standard Drinks/Week Comments No 0 (1 standard drink = 0.6 oz pur e alcohol) [facility] Utilities Answer Date Recorded In the past 12 months has th e [employer], gas, oil, or water [employer] threatened to shut off services in your home? No 04/25/2025 Social Connection and Isolation Panel [NHANES] A nswer Date Recorded In a typical week, how many times do you talk on the phone with family, friends, or neighbors? Once a week 04/25/20 How often do you get togethe r with friends or relatives? Once a week 04/25/2025 How often do you attend chur ch or taoist services? Never 04/25/2025 Do you belong to any clubs o r organizations such as scientology groups, unions, fraternal or athletic groups, or school groups? No 04/25/2025 How often do you attend meet ings of the clubs or organizations you belong to? Never 04/25/2025 Are you , , di vorced, , never , or living with a partner? Living with partner 04/25/2025 AUDIT-C Answer Date Recorded Q1: How often do you have a drink containing alcohol? Never 04/25/2025 Q2: How many drinks containi ng alcohol do you have on a typical day when you are drinking? Patient does not drink Q3: How often do you have si x or more drinks on one occasion? Never 04/25/2025 Overall Financial Resource Strain (CARDIA) Answe r Date Recorded How hard is it for you to pa y for the very basics like food, housing, medical care, and heating? Not hard at all 04/25/2025 PHQ-2 Answer Date Recorded Total Score 0 04/25/2025 [facility] - Occupational Stress Questionnaire Answer Date Recorded Do you feel stress - tense, restless, nervous, or anxious, or unable to sleep at night because your mind is troubled all the time - these days? Not at all 04/25/2025 Exercise Vital Sign Answer Date Recorde d On average, how many days pe r week do you engage in moderate to strenuous exercise (like a brisk walk)? 0 days 04/25/2025 On average, how many minutes do you engage in exercise at this level? 0 min 04/25/2025 PRAPARE - Transportation Answer Date Re corded In the past 12 months, has l ack of transportation kept you from medical appointments or from getting medications? No 04/15 In the past 12 months, has l ack of transportation kept you from meetings, work, or from getting things needed for daily living? No 04/25/2025 Housing Instability Answer Date Recorde d Are you worried or concerned that in the next two months you may not have stable housing that you own, rent or stay in as a part of a household? No 04/25/2025 Childcare Answer Date Recorded Do problems getting child ca re make it difficult for you to work or study? No 04/25/2025 Employment Answer Date Recorded Do you need help finding a [facility] career center and/or a training program? No 04/25/2025 Hunger Screening Answer Date Recorded Within the past 12 months we worried whether our food would run out before we got money to buy more. Never True 04/25/2025 Within the past 12 months th e food we bought just didn't last and we didn't have money to get more. Never True 04/25/2025 Purpose - Life Answer Date Recorded I have a purpose and direction in my life. Stron gly Agree 04/25/2025 Sex and Gender Information Value Date Recorded Sex Assigned at Not on file Legal Sex Male 12:05 PM EDT Gender Identity Not on file Sexual Orientation Not on file Last Filed Vital Signs Vital Sign Reading Time Taken Comments Blood Pressure 140/81 04/26/2025 11:19 AM EDT Pulse 75 04/26/2025 11:19 AM EDT Temperature 36.6 C (97.8 F) 04/26/2025 11:19 AM EDT Respiratory Rate 18 04/26/2025 11:1 9 AM EDT Oxygen Saturation 99% 04/26/2025 11: 19 AM EDT Inhaled Oxygen Concentration - - Weight 66.1 kg (145 lb 11.2 oz) 04/26/2025 5:07 AM EDT Height 177.8 cm (5' 10 ) 04/25/2025 2:52 AM EDT Body Mass Index 20.91 04/25/2025 2:52 AM EDT Plan of Treatment Health Maintenance Due Date Last Done Comments Abdominal Aortic Aneurysm (A AA) Screen 2011 Fall Risk Screening 2011 DTaP,Tdap and Td Vaccines (3 - Td or Tdap) 10/23/2023 10/23/2013, 07/19/2008 COVID-19 Vaccine (2023-2 5 season) 2025 10/25/2024, 09/27/2023, 11/26/2021, Additional history exists Influenza Vaccine 07/16/2025 10/25/2024, , 09/09/2016 Depression Screening 04/25/2026 04/25/2025 Tobacco Screening 04/25/2026 04/25/2025 Zoster (Shingles) Vaccine Completed 11/28/2018, 10/2018 Goals Goal Patient Goal Type Associated Problems Recent Progress Patient-Stated? Author Home with self care General Yes Alicia Redmond, RN Note: Evaluation of progress towards goal: Patient stated that he is hoping once test results are in today he will be able to return back home today with self care. 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
--- OUTSIDE RECORDS SUMMARY | 2025-08-16 08:35 | XMS_ITS | Clinical Summary ---
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 Role Phone Unavailable Primary Care Provider Unavailabl e Social History Tobacco Use Types Packs/Day Years Used Date Smoking Tobacco: Never Assessed Sex and Gender Information Value Date Recorded Sex Assigned at Not on file Legal Sex Male 8:25 PM EDT Gender Identity Not on file Sexual Orientation Not on file Last Filed Vital Signs Vital Sign Reading Time Taken Comments Blood Pressure 124/74 07/05/2018 12:00 PM EDT Pulse - - Temperature - - Respiratory Rate - - Oxygen Saturation - - Inhaled Oxygen Concentration - - Weight 68 kg (150 lb) 07/05/2018 12:00 PM EDT Height 177.8 cm (5' 10 ) 07/05/2018 12:00 PM EDT Body Mass Index 21.52 07/05/2018 12:00 PM EDT Plan of Treatment Not on file Insurance * Guarantor: Chago Chan Account Type Relation to Patient Date of Phone Billing Address Personal/Family Self 1945 [address] [place] [phone] [employer]AGE
[2025-08-16 09:19] LABS: Hematocrit 37.8 % (42.0-54.0); Hemoglobin 12.6 g/dL (14.0-18.0); Immature Granulocytes Abs Auto 0.03 10^3/uL (0.00-0.03); Immature Granulocytes Pct Auto 0.4 % (0.0-0.5); Lymphocytes Absolute Auto 1.5 10^3/uL (1.2-3.8); Mean Corpuscular HGB Conc 33.3 g/dL (29.9-35.2); Mean Corpuscular Hemoglobin 31.3 pg (25.9-34.0); Mean Corpuscular Volume 93.8 fL (80.0-94.0); Platelet Count 170 10^3/uL (150-450); Red Blood Count 4.03 10^6/uL (4.70-6.10); White Blood Count 7.4 10^3/uL (4.0-11.0)
[2025-08-16 09:22] LABS: Microalbum Creatinine Ratio Ur 16.3 mg/g (0.0-29.9)
[2025-08-16 09:38] LABS: Alanine Aminotransferase 19 U/L (16-63); Albumin Globulin Ratio 1.0; Albumin Level 3.3 g/dL (3.4-5.0); Alkaline Phosphatase 117 U/L (46-116); Anion Gap 12.9; Aspartate Amino Transferase 11 U/L (15-37); Blood Urea Nitrogen 33.0 mg/dL (7.0-18.0); Calcium 8.7 mg/dL (8.5-10.1); Carbon Dioxide 26.5 mmol/L (21.0-32.0); Chloride 101 mmol/L (98-107); Estimated GFR (African America 55 (>=60 mL/min/1.73m^2); Estimated GFR (Non-African Ame 46 (>=60 mL/min/1.73m^2); Globulin 3.2 g/dL; Glucose 74 mg/dL (74-106); Potassium 5.4 mmol/L (3.5-5.1); Sodium 135 mmol/L (136-145); Total Protein 6.5 g/dL (6.4-8.2)
== END 2025-08-16 08:31 | disposition home or self-care (01) ==
LOC: LAB 08:32
PROVIDERS: PCP Family Medicine; Visit Provider Family Medicine
DX: R19.7 Diarrhea, unspecified (principal); N18.32 Chronic kidney disease, stage 3b; E11.65 Type 2 diabetes mellitus with hyperglycemia
CPT/HCPCS: 36415; 80053; 82043; 82570; 85025